=== PATIENT | male | born 1995 | race Caucasian/White ===

== ENCOUNTER 2022-01-16 14:57 | Inpatient (IN) ==
[2022-01-16 17:28] LABS: Bacteria,Urine Few per hpf (None-Few); Bilirubin,Urine Negative (Negative); Blood,Urine Negative (Negative); Calcium Oxalate Crystals,Urine Present per hpf; Clarity,Urine Clear (Clear); Color,Urine Yellow (Yellow); Glucose,Urine (UA) Normal (Normal); Ketones,Urine Negative (Negative); Leukocyte Esterase,Urine Negative (Negative); Mucus,Urine Few per lpf (None-Few); Nitrite,Urine Negative (Negative); PH,Urine 6.5 pH Units (5.0-8.0); Protein,Urine 30 mg/dL (Neg-Trace); RBC,Urine 0-3 per hpf (0-3); Specific Gravity,Urine 1.023 (1.010-1.025); Sperm,Urine Present per hpf (None Seen); Squamous Epithelial Cell,Urine Few per hpf (None-Few); Urobilinogen,Urine Normal (Normal)
[2022-01-16 17:44] LABS: Amphetamine Screen,Urine Negative ng/mL (Cutoff=1000); Barbiturate Screen,Urine Negative ng/mL (Cutoff=200); Benzodiazepines Screen,Urine Negative ng/mL (Cutoff=200); Cannabinoid Screen,Urine Positive ng/mL (Cutoff = 50); Cocaine Screen,Urine Positive ng/mL (Cutoff= 300); Opiate Screen,Urine Negative ng/mL (Cutoff=300); Phencyclidine Screen,Urine Negative ng/mL (Cutoff=25)
[2022-01-16 17:49] LABS: Basophils % 0.4 %; Eosinophils # 0.1 K/mcL (0.0-0.6); Eosinophils % 1.1 %; Hematocrit 44.7 % (37.5-50.1); Hemoglobin 15.3 g/dL (12.9-16.9); Immature Granulocytes % 0.1 % (0-4); Lymphocytes # 1.1 K/mcL (0.6-4.6); Lymphocytes % 15.1 %; Mean Corpuscular HGB Conc 34.2 g/dL (31.6-35.5); Mean Corpuscular Hemoglobin 31.4 pg (28.0-33.3); Mean Corpuscular Volume 91.6 fL (83.0-100.0); Mean Platelet Volume 12.3 fL (9.4-12.4); Monocytes # 0.5 K/mcL (0.0-1.3); Monocytes % 6.2 %; Neutrophils # 5.8 K/mcL (1.6-8.9); Platelet Count 140 K/mcL (140-400); Red Blood Count 4.88 M/mcL (4.19-5.50); Red Cell Distribution Width 12.5 % (11.5-14.5); Segmented Neutrophils % 77.1 %; White Blood Count 7.5 K/mcL (4.3-11.1)
[2022-01-16 18:04] LABS: Acetaminophen < 10 mcg/mL (10-20); BUN/Creatinine Ratio 8 (6-26); Blood Urea Nitrogen 7 mg/dL (6-20); Calcium 9.5 mg/dL (8.6-10.3); Carbon Dioxide 27 mEq/L (23-29); Chloride 103 mEq/L (98-107); Chol/HDL Ratio 2.6 (0-4.9); Cholesterol 117 mg/dL (< 200); Ethanol < 10 mg/dL (Less than 10); Glucose 148 mg/dL (70-105); HDL Cholesterol 45 mg/dL (40-59); LDL Cholesterol,Calculated 60 mg/dL (< 100); Osmolality,Calculated 289 (280-300); Potassium 3.3 mEq/L (3.5-5.1); Salicylate < 2.5 mg/dL (15.0-30.0); Sodium 139 mEq/L (136-145); Triglycerides 60 mg/dL (< 150); eGFR For African Americans > 60 (> 60); eGFR For Non-African Americans > 60 (> 60)
[2022-01-16 21:02] LABS: Influenza A PCR Negative (Negative); Influenza B PCR Negative (Negative); Resp. Syncytial Virus PCR Negative (Negative)
[2022-01-16 21:05] LABS: SARS-CoV-2 by PCR (In House) Negative (Negative)
[2022-01-16] MEDS ORDERED: *HR* LORazepam 1 MG TABLET PO PRN (21:24)
[2022-01-16] MEDS ORDERED: hydrOXYzine pamoate 25 MG CAPSULE PO PRN (21:24)
[2022-01-16] MEDS ORDERED: QUEtiapine Fumarate 25 MG TABLET PO PRN (21:24)
[2022-01-16] MEDS ORDERED: haloperidoL 5 MG TABLET PO PRN (21:24)
[2022-01-16] MEDS ORDERED: *HR* LORazepam 2 MG/ML VIAL IM PRN (21:24)
[2022-01-16] MEDS ORDERED: Acetaminophen 325 MG TABLET PO PRN (21:24)
[2022-01-16] MEDS ORDERED: Haloperidol Lactate 5 MG/ML VIAL IM PRN (21:24)
[2022-01-17] MEDS: Nicotine 21 MG PATCH.TD24 TD SCH (09:37)
[2022-01-17] MEDS: Nicotine 2 MG GUM BC PRN ×3 (11:40→20:55)
[2022-01-17] MEDS: hydrOXYzine pamoate 25 MG CAPSULE PO PRN (16:00)
[2022-01-17 20:57] VITALS: TEMP 97.4; O2SAT 98
[2022-01-17] MEDS ORDERED: QUEtiapine Fumarate 100 MG TABLET PO SCH (21:00)
[2022-01-17] MEDS ORDERED: Mirtazapine 15 MG TABLET PO SCH (21:00)
[2022-01-18] MEDS: Nicotine 21 MG PATCH.TD24 TD SCH (08:58)
[2022-01-18] MEDS: hydrOXYzine pamoate 25 MG CAPSULE PO PRN (08:58)
[2022-01-18 09:15] VITALS: BP 134/89; PULSE 86
== END 2022-01-18 12:00 | disposition home or self-care (01) | DRG 751 ==
LOC: EMEROOARM 14:57 → 1ANU 21:18
PROVIDERS: ADMIT Psychiatry & Neurology Forensic Psychiatry; ATTEND Psychiatry & Neurology Forensic Psychiatry

== ENCOUNTER 2022-02-20 20:21 | Inpatient (IN) ==
[2022-02-20] MEDS ORDERED: Ketorolac 30 MG/ML VIAL IM ONE (21:00)
[2022-02-20 21:18] LABS: Basophils % 0.2 %; Eosinophils # 0.1 K/mcL (0.0-0.6); Eosinophils % 1.2 %; Hematocrit 41.3 % (37.5-50.1); Immature Granulocytes % 0.2 % (0-4); Lymphocytes # 1.3 K/mcL (0.6-4.6); Lymphocytes % 15.6 %; Mean Corpuscular HGB Conc 33.7 g/dL (31.6-35.5); Mean Platelet Volume 11.2 fL (9.4-12.4); Monocytes # 0.8 K/mcL (0.0-1.3); Monocytes % 8.8 %; Neutrophils # 6.3 K/mcL (1.6-8.9); Platelet Count 160 K/mcL (140-400); Red Blood Count 4.49 M/mcL (4.19-5.50); Red Cell Distribution Width 13.6 % (11.5-14.5); White Blood Count 8.5 K/mcL (4.3-11.1)
[2022-02-20 21:21] LABS: Hemoglobin 13.9 g/dL (12.9-16.9)
[2022-02-20 21:32] LABS: Amphetamine Screen,Urine Negative ng/mL (Cutoff=1000); Barbiturate Screen,Urine Negative ng/mL (Cutoff=200); Benzodiazepines Screen,Urine Negative ng/mL (Cutoff=200); Cannabinoid Screen,Urine Positive ng/mL (Cutoff = 50); Cocaine Screen,Urine Positive ng/mL (Cutoff= 300); Opiate Screen,Urine Negative ng/mL (Cutoff=300); Phencyclidine Screen,Urine Negative ng/mL (Cutoff=25)
[2022-02-20 21:42] LABS: Acetaminophen < 10 mcg/mL (10-20); BUN/Creatinine Ratio 14 (6-26); Blood Urea Nitrogen 12 mg/dL (6-20); Calcium 9.7 mg/dL (8.6-10.3); Carbon Dioxide 27 mEq/L (23-29); Chloride 105 mEq/L (98-107); Chol/HDL Ratio 2.9 (0-4.9); Cholesterol 138 mg/dL (< 200); Ethanol < 10 mg/dL (Less than 10); Glucose 85 mg/dL (70-105); HDL Cholesterol 47 mg/dL (40-59); LDL Cholesterol,Calculated 80 mg/dL (< 100); Osmolality,Calculated 291 (280-300); Potassium 3.7 mEq/L (3.5-5.1); Salicylate < 2.5 mg/dL (15.0-30.0); Sodium 141 mEq/L (136-145); Triglycerides 55 mg/dL (< 150); eGFR For African Americans > 60 (> 60); eGFR For Non-African Americans > 60 (> 60)
[2022-02-20 21:54] LABS: Bilirubin,Urine Negative (Negative); Blood,Urine Moderate (Negative); Clarity,Urine Clear (Clear); Color,Urine Yellow (Yellow); Glucose,Urine (UA) Normal (Normal); Ketones,Urine Negative (Negative); Leukocyte Esterase,Urine Trace (Negative); Mucus,Urine Few per lpf (None-Few); Nitrite,Urine Negative (Negative); Protein,Urine Trace mg/dL (Neg-Trace); RBC,Urine 15-30 per hpf (0-3); Specific Gravity,Urine 1.027 (1.010-1.025); Squamous Epithelial Cell,Urine Few per hpf (None-Few)
[2022-02-20 22:03] LABS: Estimated Average Glucose 108 mg/dl; Hemoglobin A1C 5.4 %
[2022-02-20] MEDS ORDERED: cephALEXin 500 MG CAPSULE PO ONE (22:04)
[2022-02-20 23:55] LABS: Influenza A PCR Negative (Negative); Influenza B PCR Negative (Negative); Resp. Syncytial Virus PCR Negative (Negative)
[2022-02-20 23:58] LABS: SARS-CoV-2 by PCR (In House) Negative (Negative)
[2022-02-21] MEDS ORDERED: hydrOXYzine pamoate 25 MG CAPSULE PO PRN (00:14)
[2022-02-21] MEDS ORDERED: Acetaminophen 325 MG TABLET PO PRN (00:14)
[2022-02-21] MEDS ORDERED: haloperidoL 5 MG TABLET PO PRN (00:14)
[2022-02-21] MEDS ORDERED: Haloperidol Lactate 5 MG/ML VIAL IM PRN (00:14)
[2022-02-21] MEDS ORDERED: traZODone 50 MG TABLET PO PRN (00:14)
[2022-02-21] MEDS ORDERED: *HR* LORazepam 2 MG/ML VIAL IM PRN (00:14)
[2022-02-21] MEDS ORDERED: *HR* LORazepam 1 MG TABLET PO PRN (00:14)
[2022-02-21] MEDS ORDERED: MOM Conc 10 ML UD.LIQ PO PRN (08:05)
[2022-02-21] MEDS ORDERED: Mag Hydrox/Al Hydrox/Simeth 30 ML UDC PO PRN (08:05)
[2022-02-21] MEDS ORDERED: Nicotine 2 MG GUM BC PRN (10:03)
[2022-02-21] MEDS ORDERED: QUEtiapine Fumarate 25 MG TABLET PO PRN (12:56)
[2022-02-21] MEDS ORDERED: QUEtiapine Fumarate 100 MG TABLET PO SCH (21:00)
[2022-02-21] MEDS ORDERED: Mirtazapine 15 MG TABLET PO SCH (21:00)
[2022-02-21] MEDS: cephALEXin 500 MG CAPSULE PO SCH (21:28)
[2022-02-22 08:54] VITALS: BP 118/88; PULSE 76; TEMP 97.9; O2SAT 98
[2022-02-22] MEDS: cephALEXin 500 MG CAPSULE PO SCH (10:00)
== END 2022-02-22 11:12 | disposition other institution (70) | DRG 751 ==
LOC: EMEROOARM 20:21 → 1ANU 02-21 00:06
PROVIDERS: ADMIT Psychiatry & Neurology Psychiatry; ATTEND Psychiatry & Neurology Psychiatry